=== PATIENT | male | born 1950 | race Caucasian/White ===

== ENCOUNTER 2016-07-25 07:33 | Day surgery (SDC) | payer MEDICARE, OTHER ==
--- NOTE | 2016-07-24 12:29 | NUR ---
LABS REQUESTED FROM [facility] AT DR. SALAS'S OFFICE. PLACED ON CHART
[~2016-07-25] VITALS: Ht 177.8 cm; Wt 101.0 kg
[~2016-07-25 07:33] MED LIST: LACTATED RINGERS 1,000 ML IV SCH; SODIUM CHLORIDE FLUSH 3 ML SYR IV PRN
[2016-07-25 07:42] VITALS: BP 146/80
[2016-07-25] MEDS ORDERED: ALFENTANIL 500 MCG/ML (ALFENTA) 5 ML AMP IV ONE (09:43)
[2016-07-25] MEDS ORDERED: PROPOFOL 20 ML IV ONE ×2 (09:43)
[2016-07-25] MEDS ORDERED: MIDAZOLAM 2 MG/2 ML (VERSED) VIAL ONE (09:43)
[2016-07-25 10:58] VITALS: BP 134/78
[2016-07-25 11:24] VITALS: BP 139/75
== END 2016-07-25 11:30 | disposition home or self-care (01) ==
LOC: ASC 07:33
PROVIDERS: ATTEND Surgery
DX: Z12.11 Encounter for screening for malignant neoplasm of colon (principal); D12.2 Benign neoplasm of ascending colon; D12.4 Benign neoplasm of descending colon; K62.1 Rectal polyp; K57.30 Diverticulosis of large intestine without perforation or abscess without bleeding; I10 Essential (primary) hypertension; E66.9 Obesity, unspecified; Z68.32 Body mass index [BMI] 32.0-32.9, adult; Z87.891 Personal history of nicotine dependence
CPT/HCPCS: 36415; 45380; 84132; 88305; J2250; J7120